=== PATIENT | female | born 1995 | race Caucasian/White ===

== ENCOUNTER 2018-04-19 01:56 | Emergency (ER) | payer OTHER ==
[~2018-04-19] VITALS: Ht 162.6 cm; Wt 59.0 kg
[2018-04-19 03:35] VITALS: BP 124/62
[2018-04-19] MEDS ORDERED: ACETAMINOPHEN/CODEINE#3 (300/30mg) TAB PO ONE (03:45)
[2018-04-19] MEDS ORDERED: BACLOFEN 10 MG TAB PO ONE (03:45)
== END 2018-04-19 04:21 | disposition home or self-care (01) ==
LOC: ER 01:56
DX: M62.838 Other muscle spasm (principal); M54.2 Cervicalgia; R51 Headache
CPT/HCPCS: 72125